=== PATIENT | female | born 1930 | race Caucasian/White ===

== ENCOUNTER 2018-09-16 13:05 | Inpatient (IN) | payer MEDICARE, OTHER ==
[~2018-09-16] VITALS: Ht 142.2 cm; Wt 56.7 kg
[2018-09-16] MEDS ORDERED: ONDANSETRON HCL/PF 4 MG/2 ML VIAL ONE (13:20)
[2018-09-16] MEDS ORDERED: MORPHINE SULFATE INJ 4 MG/ML DISP.SYRIN ONE (13:21)
[2018-09-16] MEDS ORDERED: AMLO5TAB9 PO (13:25)
[2018-09-16 13:28] LABS: BASOPHILS % (AUTO) 0.6 % (0.0-2.0); EOSINOPHILS % (AUTO) 1.7 % (0.0-6.0); HEMATOCRIT 44 % (33-45); HEMOGLOBIN 14.8 g/dL (11.5-14.8); LYMPHOCYTES % (AUTO) 20.8 % (20.0-44.0); MEAN CORPUSCULAR HGB CONC 34 g/dl (31.0-36.0); MEAN CORPUSCULAR VOLUME 95 fL (82-100); MONOCYTES % (AUTO) 7.1 % (2.0-12.0); NEUTROPHILS % (AUTO) 69.8 % (43.0-81.0); PLATELET COUNT (AUTO) 323 /CMM (150-450); RED BLOOD CELL COUNT(AUTO) 4.57 MIL/uL (4.0-5.2); WHITE BLOOD COUNT (AUTO) 7.8 K/uL (4.3-11.0)
[2018-09-16 13:29] LABS: LYMPHOCYTES # (AUTO) 1.6 /CMM (0.8-4.8); MONOCYTES # (AUTO) 0.6 /CMM (0.1-1.30); NEUTROPHILS # (AUTO) 5.4 /CMM (1.8-8.9)
[2018-09-16] MEDS ORDERED: ONDANSETRON HCL/PF 4 MG/2 ML VIAL IVP ONE (13:30)
[2018-09-16] MEDS ORDERED: IV NS 0.9% 500 ML BAG IV ONE (13:30)
[2018-09-16] MEDS ORDERED: MORPHINE SULFATE INJ 2 MG/ML DISP.SYRIN IV ONE (13:30)
--- NOTE | 2018-09-16 13:37 | NUR ---
BIB [id number], GLF C/O RT HIP PAIN, -KO +SHORTENING. PT AOX4, VSS, RR EVEN AND UNLABORED ON RA. DENIES SOB, DIZZINESS, WEAKNESS, N/V. HOOKED TO MONITOR AND MADE COMFORTABLE. CAREGIVER FAITH AT BEDSIDE. READY FOR EVAL.
[2018-09-16 13:39] LABS: CALCIUM, SERUM 9.2 mg/dL (8.5-10.1); CARBON DIOXIDE 27 mmol/L (21-32); CREATININE 0.8 mg/dL (0.6-1.3); GLUCOSE 140 mg/dL (74-106); UREA NITROGEN, BLOOD 17 mg/dL (7-18)
[2018-09-16 13:45] LABS: CHLORIDE 102 mmol/L (98-107); SODIUM SERUM 138 mmol/L (136-145)
--- NOTE | 2018-09-16 14:16 | NUR ---
CALLED [facility] [phone] ITS YAHAIRA
--- NOTE | 2018-09-16 14:29 | NUR ---
PANEL ON-CALL PAGED
--- NOTE | 2018-09-16 14:53 | NUR ---
PT IS GOING TO TELE 313-2
--- NOTE | 2018-09-16 15:10 | NUR ---
REPORT GIVEN TO BEE OLIVIA FOR 313-2 M/S
--- NOTE | 2018-09-16 15:39 | NUR ---
[facility]
--- NOTE | 2018-09-16 15:40 | NUR ---
RN MS NOTES Received patient around 1540. Room air, no sob noted. Patient denies pain at this time. Transferred patient to bed from [facility] without any incident. Patient's vital sign stable. Patient with sitter at bedside. Asked patient about her code status, she stated that she will need to ask her family at this time. Bed at the lowest setting, call light within reach and patient knows how to use it as well.
[2018-09-16 16:00] VITALS: BP 118/56
[2018-09-16] MEDS: HYDROCODONE/APAP 5/325MG 1 EACH TABLET PO PRN (17:23)
[2018-09-16] MEDS ORDERED: ONDANSETRON HCL/PF 4 MG/2 ML VIAL IVP PRN (17:30)
[2018-09-16] MEDS ORDERED: MAGNESIUM HYDROXIDE 30 ML UDC PO PRN (17:30)
[2018-09-16] MEDS ORDERED: MAG HYDROX/AL HYDROX/SIMETH 30 ML UDC PO PRN (17:30)
[2018-09-16] MEDS ORDERED: ZOLPIDEM TARTRATE 5 MG TABLET PO PRN (17:30)
[2018-09-16] MEDS ORDERED: SODIUM POLYSTYRENE SULF. PWD 15 GM UDC PO ONE (17:30)
[2018-09-16] MEDS ORDERED: ACETAMINOPHEN 325 MG TABLET PO PRN (17:30)
[2018-09-16] MEDS ORDERED: Z GUARD REMEDY 2 OZ OINT TP PRN (17:30)
[2018-09-16 18:04] LABS: ALANINE AMINOTRANSFERASE 34 U/L (12-78); ALBUMIN 3.6 g/dL (3.4-5.0); ALKALINE PHOSPHATASE 66 U/L (46-116); ASPARTATE AMINOTRANSFERASE 25 U/L (15-37); BILIRUBIN,TOTAL 0.6 mg/dL (0.2-1.0); CALCIUM, SERUM 8.7 mg/dL (8.5-10.1); CARBON DIOXIDE 28 mmol/L (21-32); CHLORIDE 104 mmol/L (98-107); CREATININE 0.8 mg/dL (0.6-1.3); GLUCOSE 137 mg/dL (74-106); POTASSIUM 4.1 mmol/L (3.5-5.1); SODIUM SERUM 140 mmol/L (136-145); TOTAL PROTEIN, SERUM 7.1 g/dL (6.4-8.2); UREA NITROGEN, BLOOD 16 mg/dL (7-18)
--- NOTE | 2018-09-16 18:39 | NUR ---
RN MS CLOSING NOTES Patient remains on room air, no sob noted. Placed a Obrien catheter size 16, urine flowing without any obstruction. Patient stated that they told ER to not put any line on her right arm due to some procedure that was done before, and that her physician advised her not to have B/P, blood, or any draws from her Right side. Patient came with IV on the right arm. Patient is aware of her surgery tomorrow and needs the consent and forms signed. Patient's bed at the lowest setting, call light within reach.
--- NOTE | 2018-09-16 19:46 | NUR ---
MS RN RECEIVE PT AWAKE IN BED,A/O X4 RESPIRATIONS EVEN AND UNLABORED, SAFETY MEASURES IN PLACE. WILL CONTINUE TO MONITOR
[2018-09-16 20:00] VITALS: BP 153/85
[2018-09-16] MEDS: IV 1/2NS 1000 ML 1,000 ML IV PRN (21:17)
[2018-09-17] MEDS: HYDROCODONE/APAP 5/325MG 1 EACH TABLET PO PRN (00:08)
--- NOTE | 2018-09-17 06:07 | NUR ---
MS RN ASLEEP AND EASILY AWAKEN, MAINTAINS NPO. NWB RLE, SLEPT WELL THROUGHOUT THE SHIFT. TOLERATING ROOM AIR 99%. RESPIRATION EVEN AND UNLABORED, NEEDS ATTENDED AND ANTICIPATED, KEPT CLEAN AND DRY AND COMFORTABLE. NURSING CARE RENDERED, GONZALES CATH DRAINING CLEAR YELLOW NO SEDIMENTS, NO HEMATURIA. NO CLOUDINESS. REPOSITIONED EVERY 2 HOURS AND PRN. OFFLOAD HEELS AND ELBOWS. SAFETY MEASURES AT ALL TIMES. ENDORSE TO THE NEXT SHIFT.
[2018-09-17 06:13] LABS: BASOPHILS % (AUTO) 0.2 % (0.0-2.0); EOSINOPHILS % (AUTO) 0.7 % (0.0-6.0); HEMATOCRIT 39 % (33-45); HEMOGLOBIN 13.3 g/dL (11.5-14.8); LYMPHOCYTES % (AUTO) 23.6 % (20.0-44.0); MEAN CORPUSCULAR HGB CONC 34 g/dl (31.0-36.0); MEAN CORPUSCULAR VOLUME 94 fL (82-100); MONOCYTES # (AUTO) 0.8 /CMM (0.1-1.30); MONOCYTES % (AUTO) 9.4 % (2.0-12.0); NEUTROPHILS # (AUTO) 5.7 /CMM (1.8-8.9); NEUTROPHILS % (AUTO) 66.1 % (43.0-81.0); PLATELET COUNT (AUTO) 309 /CMM (150-450); RED BLOOD CELL COUNT(AUTO) 4.18 MIL/uL (4.0-5.2); WHITE BLOOD COUNT (AUTO) 8.7 K/uL (4.3-11.0)
[2018-09-17 06:30] LABS: ALANINE AMINOTRANSFERASE 31 U/L (12-78); ALBUMIN 3.4 g/dL (3.4-5.0); ALKALINE PHOSPHATASE 63 U/L (46-116); ASPARTATE AMINOTRANSFERASE 24 U/L (15-37); CALCIUM, SERUM 8.9 mg/dL (8.5-10.1); CARBON DIOXIDE 25 mmol/L (21-32); CHLORIDE 104 mmol/L (98-107); CREATININE 0.8 mg/dL (0.6-1.3); GLUCOSE 115 mg/dL (74-106); MAGNESIUM 2.1 mg/dL (1.8-2.4); PHOSPHORUS 3.6 mg/dL (2.5-4.9); POTASSIUM 3.5 mmol/L (3.5-5.1); SODIUM SERUM 139 mmol/L (136-145); TOTAL PROTEIN, SERUM 7.3 g/dL (6.4-8.2); UREA NITROGEN, BLOOD 14 mg/dL (7-18)
[2018-09-17 07:09] LABS: CHOLESTEROL 286 mg/dL (<200); HDL CHOLESTEROL 136 mg/dL (40-60); LDL 140 mg/dL (0-99); TRIGLYCERIDES 51 mg/dL (30-150)
[2018-09-17 08:00] VITALS: BP 154/74
--- NOTE | 2018-09-17 08:03 | NUR ---
RN MS OPENING NOTES Received patient on room air, no sob noted. Patient denies pain at this time, patient is lying down comfortably on her bed. Patient denies any discomfort. Bed at the lowest setting, call light within reach.
[2018-09-17] MEDS: AMLODIPINE BESYLATE 5 MG TABLET PO SCH (09:31)
[2018-09-17] MEDS: MORPHINE SULFATE INJ 2 MG/ML DISP.SYRIN IV PRN ×2 (10:46→12:13)
[2018-09-17] MEDS: IV 1/2NS 1000 ML 1,000 ML IV PRN (12:05)
--- NOTE | 2018-09-17 12:50 | NUR ---
M/S RN NOTES PATIENT WHEELED VIA GURNEY TO OR WITH 2 FEMALE STAFF. PATIENT PRE PROCEDURE CHECKLIST DISCUSSED AND TIME OUT SITE. JEWELRY PLACED ON SAFE BOX AND PATIENT AGREED WITH VERBAL UNDERSTANDING.
[2018-09-17] MEDS ORDERED: BACITRACIN 50000 UNITS/VIAL ONE (12:55)
[2018-09-17] MEDS ORDERED: LANOLIN/MIN OIL/PETROLAT,WHT 3.5 GM TUBE ONE (12:56)
[2018-09-17 13:16] LABS: APPEARANCE,URINE CLEAR (CLEAR); BILIRUBIN,URINE NEGATIVE (NEGATIVE); BLOOD, URINE 3+ Ery/uL (NEGATIVE); COLOR,URINE YELLOW (YELLOW); KETONES,URINE NEGATIVE (NEGATIVE); LEUKOCYTE ESTERASE ,URINE NEGATIVE (NEGATIVE); NITRITE, URINE NEGATIVE (NEGATIVE); PH,URINE 5.5 (5.0-8.0); PROTEIN,URINE NEGATIVE (NEGATIVE); UGLUCOSE NEGATIVE (NEGATIVE); UROBILINOGEN,URINE 0.2 EU/dL (0.2)
[2018-09-17 13:29] LABS: SQUAMOUS EPITHELIAL CELL,UR Few /HPF (None Seen)
[2018-09-17 13:30] LABS: BACTERIA,URINE Rare /HPF (None Seen)
[2018-09-17 13:31] LABS: RBC,URINE 21-50 /HPF (0-2); WBC,URINE 0-2 /HPF (0-3)
[2018-09-17] MEDS ORDERED: BUPIVACAINE 0.5 % PF 150 MG/30 ML VIAL ONE (14:48)
[2018-09-17] MEDS ORDERED: FENTANYL PF 100MCG/2ML AMPUL ONE ×2 (15:13→15:28)
[2018-09-17] MEDS ORDERED: ONDANSETRON HCL/PF 4 MG/2 ML VIAL ONE (15:30)
[2018-09-17] MEDS ORDERED: METOCLOPRAMIDE HCL 10 MG/2 ML VIAL ONE (15:35)
[2018-09-17 16:00] VITALS: BP 147/85
[2018-09-17 16:29] LABS: BASOPHILS % (AUTO) 0.3 % (0.0-2.0); EOSINOPHILS % (AUTO) 0.3 % (0.0-6.0); HEMATOCRIT 37 % (33-45); HEMOGLOBIN 12.2 g/dL (11.5-14.8); LYMPHOCYTES # (AUTO) 2.1 /CMM (0.8-4.8); LYMPHOCYTES % (AUTO) 13.6 % (20.0-44.0); MEAN CORPUSCULAR HGB CONC 33 g/dl (31.0-36.0); MEAN CORPUSCULAR VOLUME 96 fL (82-100); MONOCYTES # (AUTO) 0.8 /CMM (0.1-1.30); MONOCYTES % (AUTO) 5.2 % (2.0-12.0); NEUTROPHILS # (AUTO) 12.5 /CMM (1.8-8.9); NEUTROPHILS % (AUTO) 80.6 % (43.0-81.0); PLATELET COUNT (AUTO) 308 /CMM (150-450); RED BLOOD CELL COUNT(AUTO) 3.86 MIL/uL (4.0-5.2); WHITE BLOOD COUNT (AUTO) 15.4 K/uL (4.3-11.0)
[2018-09-17 16:40] LABS: CALCIUM, SERUM 8.4 mg/dL (8.5-10.1); CARBON DIOXIDE 20 mmol/L (21-32); CHLORIDE 107 mmol/L (98-107); CREATININE 0.8 mg/dL (0.6-1.3); GLUCOSE 147 mg/dL (74-106); POTASSIUM 3.5 mmol/L (3.5-5.1); SODIUM SERUM 141 mmol/L (136-145); UREA NITROGEN, BLOOD 13 mg/dL (7-18)
--- NOTE | 2018-09-17 16:54 | NUR ---
RN MS NOTES Patient back to the room around 1630, no sob noted, vital signs stable. Patient able to be wakened up but wanted to sleep. Her 2 rings and 2 necklaces were given to emory, her caregiver, she stated that she will put it on the patient when she wakens up.
[2018-09-17] MEDS ORDERED: DOCUSATE SODIUM 100 MG CAPSULE PO PRN (17:00)
[2018-09-17] MEDS ORDERED: SENNOSIDES 8.6 MG TABLET PO PRN (17:00)
--- NOTE | 2018-09-17 18:04 | NUR ---
RN MS CLOSING NOTES Patient is now on 3L o2 nasal cannula, came from surgery with the nasal cannula. Patient went to surgery around 1300, and came back around 1630. Patient easily awakened now and has food in her room. Back on the IVF at 75 ml/hour and has no obstruction and is free flowing. Patient has her 2 rings and 2 necklace back on her possession. Patient denies pain at this time and vital signs are WNL. Bed at the lowest setting, call light within reach.
--- NOTE | 2018-09-17 18:52 | NUR ---
RN MS NOTES Pharmacy called and wanted the RN tomorrow morning to "CLARIFYING WITH MD IF OK TO USE HEPARIN PPX INSTEAD DUE TO RENAL". Will pass the message to NOC RN to clarify with orthopedics if they want to give heparin instead of lovenox.
--- NOTE | 2018-09-17 19:15 | NUR ---
MS RN OPENING NOTES Received patient in bed, sleeping. Breathing even and unlabored, not in any distress, on room air. Peripheral IV infusing at 75 ml/hour. Obrien catheter draining yellow urine. No complaints at this time. Safety measures in place; call light within reach. Bed in low, locked position. Patient stable as endorsed by the AM RN. Will continue to monitor accordingly
[2018-09-17 20:00] VITALS: BP 136/72
[2018-09-17] MEDS: CEFAZOLIN 2 GM in IV D5W 50 ML IV SCH (21:27)
--- NOTE | 2018-09-18 02:15 | NUR ---
RN NOTES Patient rounds- patient is sleeping comfortably. No signs of distress
--- NOTE | 2018-09-18 04:00 | NUR ---
RN NOTES Patient is awake, asked if she's in pain. Patient denies pain, said it's not painful, just uncomfortable. Says she does not want any pain meds
[2018-09-18] MEDS: CEFAZOLIN 2 GM in IV D5W 50 ML IV SCH (05:23)
[2018-09-18] MEDS: IV 1/2NS 1000 ML 1,000 ML IV PRN ×2 (06:01→22:12)
--- NOTE | 2018-09-18 06:51 | NUR ---
MS RN CLOSING NOTES Patient in bed, sleeping, easily arousable. Breathing even and unlabored, not in any distress, on room air. Peripheral IV infusing at 75 ml/hour. Borien catheter in place, drained 500mL of clear yellow urine. Safety measures in place; call light within reach. Bed in low, locked position. All needs attended and anticipated. Will endorse BAO to oncoming RN
--- NOTE | 2018-09-18 07:24 | NUR ---
RN MS Opening NOTES Patient remains on room air, no sob noted. Patient lying down on bed comfortably, patient denies pain at this time. Patient stated she has no discomfort on her surgically repaired right hip/leg. Bed at the lowest setting, call light within reach.
[2018-09-18 08:07] VITALS: BP 145/75
[2018-09-18] MEDS: AMLODIPINE BESYLATE 5 MG TABLET PO SCH (08:46)
[2018-09-18 08:53] LABS: BASOPHILS % (AUTO) 0.2 % (0.0-2.0); EOSINOPHILS % (AUTO) 0.2 % (0.0-6.0); HEMATOCRIT 26 % (33-45); HEMOGLOBIN 9.1 g/dL (11.5-14.8); LYMPHOCYTES # (AUTO) 1.8 /CMM (0.8-4.8); LYMPHOCYTES % (AUTO) 19.1 % (20.0-44.0); MEAN CORPUSCULAR HGB CONC 35 g/dl (31.0-36.0); MEAN CORPUSCULAR VOLUME 94 fL (82-100); MONOCYTES # (AUTO) 0.5 /CMM (0.1-1.30); MONOCYTES % (AUTO) 5.8 % (2.0-12.0); NEUTROPHILS % (AUTO) 74.7 % (43.0-81.0); PLATELET COUNT (AUTO) 245 /CMM (150-450); WHITE BLOOD COUNT (AUTO) 9.4 K/uL (4.3-11.0)
[2018-09-18 09:13] LABS: ALANINE AMINOTRANSFERASE 23 U/L (12-78); ALBUMIN 2.7 g/dL (3.4-5.0); ALKALINE PHOSPHATASE 41 U/L (46-116); ASPARTATE AMINOTRANSFERASE 21 U/L (15-37); BILIRUBIN,TOTAL 0.4 mg/dL (0.2-1.0); CALCIUM, SERUM 8.1 mg/dL (8.5-10.1); CARBON DIOXIDE 21 mmol/L (21-32); CHLORIDE 104 mmol/L (98-107); CREATININE 1.1 mg/dL (0.6-1.3); GLUCOSE 190 mg/dL (74-106); MAGNESIUM 1.8 mg/dL (1.8-2.4); PHOSPHORUS 3.4 mg/dL (2.5-4.9); POTASSIUM 3.5 mmol/L (3.5-5.1); SODIUM SERUM 138 mmol/L (136-145); TOTAL PROTEIN, SERUM 5.8 g/dL (6.4-8.2); UREA NITROGEN, BLOOD 15 mg/dL (7-18)
[2018-09-18 10:36] LABS: CHOLESTEROL 205 mg/dL (<200); HDL CHOLESTEROL 95 mg/dL (40-60); LDL 91 mg/dL (0-99); TRIGLYCERIDES 73 mg/dL (30-150)
[2018-09-18] MEDS: ENOXAPARIN SODIUM 40 MG/0.4 ML DISP.SYRIN SQ SCH (11:17)
[2018-09-18 16:00] VITALS: BP 118/57
--- NOTE | 2018-09-18 16:09 | NUR ---
RN MS NOTES REMOVED PATIENT'S POP CATHETER VIA Dobson's assistance, as patient wanted a female nurse to remove the pop. 550 mL of fluid was removed.
--- NOTE | 2018-09-18 18:07 | NUR ---
RN MS CLOSING NOTES Patient remains on room air, no sob noted. Patient denies pain at this time, patient seen eating comfortably on her bed. No pain or discomfort on her operated leg. Patient remains with the SCD and she has no complaints or questions about the device. IVF on patients Left hand with a #20 gauge, 1/2 NS @ 75 mL per hour. Fluid is free flowing and has no obstruction. Patient's belongings remains with her possession, jewelry and iphone. Bed at the lowest setting, call light within reach. All needs and medications given to patient. Will give to NOC RN for BAO.
[2018-09-18] MEDS: MORPHINE SULFATE INJ 2 MG/ML DISP.SYRIN IV PRN (18:14)
--- NOTE | 2018-09-18 19:20 | NUR ---
RN OPEN NOTES RECEIVED PATIENT AWAKE IN BED. A/O X3. NO SIGNS OF DISTRESS OR DISCOMFORT. BREATHING EVEN AND UNLABORED. PATIENT STATES PAIN IS 7/10 IN R HIP BUT TOLERABLE AT THIS TIME. IV ACCESS IN L HAND WITH 1/2 NS INFUSING, PATENT AND INTACT, NO SIGNS OF REDNESS OR INFILTRATION. BED IN LOW LOCKED POSITION WITH SIDE RAILS X2. CALL LIGHT WITHIN REACH. WILL CONTINUE TO MONITOR.
[2018-09-18 20:00] VITALS: BP 131/72
--- NOTE | 2018-09-19 07:29 | NUR ---
RN CLOSING NOTES PATIENT AWAKE IN BED. A/O X3. NO SIGNS OF DISTRESS OR DISCOMFORT. BREATHING EVEN AND UNLABORED. PATIENT DENIES ANY PAIN AT THIS TIME. ALL NEEDS MET. NO SIGNIFICANT CHANGES THROUGH THE NIGHT. BED IN LOW LOCKED POSITION WITH SIDE RAILS X2. CALL LIGHT WITHIN REACH. ENDORSED TO AM SHIFT FOR BAO.
--- NOTE | 2018-09-19 07:39 | NUR ---
MS RN OPENING NOTES RECEIVED PATIENT AWAKE IN BED IN NO ACUTE SIGNS OF DISTRESS. A/O X3. ABLE TO MAKE NEEDS KNOWN, DENIES PAIN OR ANY DISCOMFORTS AT THIS TIME. ON ROOM AIR, BREATHING EVEN AND UNLABORED. IV ACCESS LEFT WRIST INTACT AND PATENT, PT REFUSING IVF OF 1/2 NS. THREE DRESSINGS ON RIGHT HIP AND LEG C/D/I. SAFETY MEASURES IN PLACE. BED IN LOW LOCKED POSITION WITH SIDE RAILS UP X2. CALL LIGHT WITHIN REACH. WILL CONTINUE TO MONITOR
[2018-09-19 08:00] VITALS: BP 131/57
[2018-09-19] MEDS: AMLODIPINE BESYLATE 5 MG TABLET PO SCH (08:21)
[2018-09-19] MEDS: ENOXAPARIN SODIUM 40 MG/0.4 ML DISP.SYRIN SQ SCH (12:19)
--- NOTE | 2018-09-19 15:50 | NUR ---
RN NOTES PATIENT COMPLAINED OF NAUSEA, PRN ZOFRAN 4MG/2ML IVP ADMINISTERED AT 1545. WILL CONTINUE TO MONITOR AND REASSESS PT.
[2018-09-19 16:00] VITALS: BP 107/60
[2018-09-19] MEDS: HYDROCODONE/APAP 5/325MG 1 EACH TABLET PO PRN (18:45)
--- NOTE | 2018-09-19 18:53 | NUR ---
RN NOTES/PAIN MANAGEMENT PATIENT NOTED TO HAVE FACIAL GRIMACE AND COMPLAINED OF IRRITATION OF LEGS. ASKED IF IN PAIN, PATIENT STATED "SORTOFF 510". GIVEN PRN NORCO 5/325 PO @ 1845. WILL CONTINUE TO MONITOR AND ENDORSE PAIN REASSESSMENT TO DIAL POLISHER NURSE.
--- NOTE | 2018-09-19 18:59 | NUR ---
MS RN CLOSING NOTES PATIENT AWAKE AND RESTING AT MODERATE HIGH BACKREST IN BED. A/O X3. ABLE TO MAKE NEEDS KNOW. CALMED AND QUIET DURING THE DAY. ON ROOM AIR, TOLERATING WELL WITH NO SOB NOTED. IV ACCESS LEFT WRIST INTACT AND PATENT, PT REMAINS REFUSING IVF. INCREASED ORAL FLUIDS ENCOURAGED. THREE DRESSINGS ON RIGHT HIP AND LEG C/D/I. ALL NEEDS AND CARE ATTENDED WELL. SAFETY MEASURES KEPT IN PLACE. BED IN LOW LOCKED POSITION WITH SIDE RAILS UP X2. CALL LIGHT WITHIN REACH. WILL ENDORSE TO PRESS OPERATOR NURSE FOR BAO.
--- NOTE | 2018-09-19 19:45 | NUR ---
MSRN FULLY AWAKE, FAMILY AT BEDSIDE. PROVIDED PRIVACY. TO CONTINUE.
[2018-09-19 20:00] VITALS: BP 124/56
--- NOTE | 2018-09-19 20:06 | NUR ---
MSRN FAMILY STILL AT BEDSIDE, DISCUSSED PLAN OF CARE AND MEDICATION REGIMEN WITH PATIENT, WELL UNDERSTOOD. NEEDS FREQUENT ROUNDS, PATIENT FORGETFUL. NO NEEDS OF THIS TIME, CLOSELY WATCHED.
[2018-09-19 22:00] VITALS: BP 124/56
--- NOTE | 2018-09-19 22:35 | NUR ---
MSRN AWAKENED, NO NEEDS FOR NOW, REPOSITIONED, OFFERED PAIN MED, DECLINED. STATED PAINFUL ONLY WHEN SHE MOVES.
--- NOTE | 2018-09-20 03:00 | NUR ---
MSRN AWAKENED, REPOSITIONED, REFUSED PAIN MED OF THIS TIME. REMINDED NEED TO BE PREMEDICATED PRIOR TO PHYSICAL THERAPY.
--- NOTE | 2018-09-20 07:06 | NUR ---
MS RN OPENING NOTES RECEIVED PATIENT AWAKE IN BED IN NO ACUTE SIGNS OF DISTRESS. HOB ELEVATED. A/O X3. VERBALLY RESPONSIVE, DENIES PAIN OR ANY DISCOMFORTS AT THIS TIME. 3 DRESSINGS ON RIGHT HIP /LEG C/D/I. ON ROOM AIR, BREATHING EVEN AND UNLABORED. PIV ON LEFT WRIST INTACT AND PATENT, PT REFUSING IVF. SAFETY MEASURES IN PLACE. BED IN LOW LOCKED POSITION WITH SIDE RAILS UP X2. CALL LIGHT WITHIN REACH. WILL CONTINUE TO MONITOR
[2018-09-20 08:00] VITALS: BP 127/63
[2018-09-20] MEDS: AMLODIPINE BESYLATE 5 MG TABLET PO SCH (08:15)
[2018-09-20] MEDS ORDERED: DOCU-270 PO (10:08)
[2018-09-20] MEDS ORDERED: ACET325T53 PO (10:08)
[2018-09-20] MEDS ORDERED: SENN-168 PO (10:08)
[2018-09-20] MEDS ORDERED: HYDR-3972 PO (10:08)
[2018-09-20] MEDS ORDERED: ENOX40DI SQ (10:08)
[2018-09-20] MEDS: ENOXAPARIN SODIUM 40 MG/0.4 ML DISP.SYRIN SQ SCH (11:27)
[2018-09-20] MEDS: HYDROCODONE/APAP 5/325MG 1 EACH TABLET PO PRN (13:33)
--- NOTE | 2018-09-20 13:43 | NUR ---
RN NOTES PATIENT JUST HAD PHYSICAL THERAPY AND C/O RIGHT HIP PAIN AFTER WITH SCALE OF 6/10. PRN NORCO 5/325MG PO ADMINISTERED AT 1333. WILL CONTINUE TO MONITOR AND REASSESS PT.
--- NOTE | 2018-09-20 13:45 | NUR ---
RN NOTES PT WITH NEGATIVE VENOUS DOPPLER ON LEFT LOWER EXTREMITY. PT FOR DISCHARGE TO [facility] THIS AFTERNOON. CALLED AND REPORT GIVEN TO BEE SMITH. PT'S PRIVATE CAREGIVER FAITH AT BEDSIDE AND INFORMED PT'S DISCHARGE TO [facility] THIS AFTERNOON AND STATED THAT SHE WILL INFORM THE PT'S FAMILY.
[2018-09-20 16:00] VITALS: BP 103/60
--- NOTE | 2018-09-20 16:50 | NUR ---
CRANK HAND NOTES PATIENT DISCHARGED TO [facility] IN STABLE CONDITION. A/O X3. VERBALLY RESPONSIVE WITH NO COMPLAINED VOICED DURING DISCHARGE. V/S TAKEN AND RECORDED. TAMELA VALDOVINOS CAME, EVALUATED AND CHANGED PT'S SURGICAL DRESSINGS. PHOTOS OF SURGICAL INCISIONS ON RIGHT HIP TAKEN AND FILED ON CHART. IV ACCESS REMOVED WITH NO BLEEDING NOTED. HEALTH TEACHINGS / DISCHARGED INSTRUCTIONS GIVEN TO PT AND PT'S PRIVATE CAREGIVER FAITH, BOTH VERBALIZED UNDERSTANDING. PT LEFT UNIT AT 1640 VIA [facility] ACCOMPANIED BY 2 EMT'S. CHARGE NURSE AWARE OF DISCHARGE.
== END 2018-09-20 16:40 | DRG 482 ==
LOC: ER 13:06 → TELE 15:02 → MED 16:22
PROVIDERS: ADMIT Internal Medicine; ATTEND Nurse Practitioner Acute Care
PROC: 0QS706Z Reposition Left Upper Femur with Intramedullary Internal Fixation Device, Open Approach (ICD-10-PCS; principal; 2018-09-17)
DX: S72.141A Displaced intertrochanteric fracture of right femur, initial encounter for closed fracture (principal); W18.30XA Fall on same level, unspecified, initial encounter; Y92.89 Other specified places as the place of occurrence of the external cause; E87.5 Hyperkalemia; Z88.0 Allergy status to penicillin; I10 Essential (primary) hypertension; D72.829 Elevated white blood cell count, unspecified
CPT/HCPCS: 36415; 71045-TC; 73501; 73502; 73552; 80048-TC; 80053-TC; 80061-TC; 81000-TC; 83735-TC; 84100-TC; 84484-TC; 85025-TC; 85730-TC; 87081-TC; 93307-TC; 93971-TC; 97110-TC; 97116-TC; 97530-TC; A6209; A6402; C1713; G0378; J0690; J1100; J1650; J2270; J2405; J2765; J3010; J3490; J7040; J7060